=== PATIENT | female | born 1995 | race Caucasian/White ===

== ENCOUNTER 2019-08-04 18:30 | Emergency (ER) | payer BC, SELFPAY ==
[2019-08-04 18:36] VITALS: BP 135/81; PULSE 79; RESP 16; TEMP 37.1; O2SAT 99
--- NOTE | 2019-08-04 19:02 | ED.GENADULT ---
HPI - General Adult General Chief complaint: Skin/Abscess/Foreign Body Stated complaint: Rash Time Seen by Provider: 08/04/19 19:02 Source: patient and RN notes reviewed Mode of arrival: ambulatory Limitations: no limitations History of Present Illness HPI narrative: 23-year-old female presents with complaints of lesions throughout body with redness, tenderness, and swelling for the past 2 months. Tender to touch. Bactroban and facial washes with little relief. New areas appears almost daily. Kiley admits to picking at skin espicially to face area often. Currently awaiting a Aerographer referral and appointment per Kiley. Treated for MRSA and lesions 2 months ago with some. No drainage. History of skin problems. No fever or chills. No abdominal pain, nausea, and vomiting. Remains active. Kiley denies being , LMP 07/28/19. Some parts of this dictation were generated by voice recognition software and may contain typographical and/or grammatical inaccuracies. Related Data Home Medications Medication Instructions Recorded Confirmed aripiprazole 2 mg DAILY 08/04/19 08/04/19 dextroamphetamine-amphetamine 30 mg DAILY 08/04/19 08/04/19 Allergies Allergy/AdvReac Type Severity Reaction Status Date / Time No Known Allergies Allergy Verified 08/04/19 18:43 Review of Systems Review of Systems: Narrative: CONSTITUTIONAL: Denies fever, chills, sweats. EYES: Denies visual changes, redness, discharge. ENT: Denies rhinorrhea, congestion, sore throat, otalgia. CARDIOVASCULAR: Denies chest pain, palpitations, edema. RESPIRATORY: Denies dyspnea, wheezing, cough. GASTROINTESTINAL: Denies abdominal pain, nausea, vomiting, diarrhea. GENITOURINARY: Denies dysuria, hematuria, abnormal discharge. SKIN: Denies rash or itching. Complains of lesions throughout body with redness, tenderness, and swelling. No drainage. MUSCULOSKELETAL: Denies acute back pain, joint pain, or myalgia. NEUROLOGIC: Denies numbness or focal weakness. PSYCHIATRIC: Denies anxiety or depression. All systems reviewed & are unremarkable except as noted in HPI and below. PENDING SALE TO [facility] Past Medical History Medical History (Updated 08/05/19 @ 00:00 by Benito Escobar) ADHD (attention deficit hyperactivity disorder) Anxiety Depression Surgical History Surgical History (Updated 03/13/20 @ 19:14 by MATHEW Zhu) No significant past surgical history Family History Family History (Updated 08/04/19 @ 19:15 by MATHEW Zhu) Other No significant family history Social History Social History (Updated 08/04/19 @ 19:16 by MATHEW Zhu) Smoking status: Former smoker Second hand tobacco smoke exposure: No Alcohol intake: never Substance use: never Living arrangements: with family Occupation/Education: occupation Gender identity (if verbalized by the patient): Female Comments At time of signature, I have reviewed and agree with nursing past medical, surgical, social, and family history. Please see nursing chart for further information. There is no relevant family history pertinent to the presenting complaint. Exam Narrative: Exam Narrative: GENERAL: This is a well-nourished, well-developed patient, in no apparent distress. Talking in full sentences without deficit and ambulate with steady gait without dyspnea. HEAD: normocephalic, atraumatic. EYES: PERRL. Sclera clear/white. Vision is grossly intact. NECK: Neck supple, non-tender without lymphadenopathy, masses or thyromegaly. CARDIOVASCULAR: Regular rate and rhythm without murmurs, gallops, or rubs. RESPIRATORY: Clear to auscultation. Breath sounds equal bilaterally. No wheezes, rales, or rhonchi. GASTROINTESTINAL: Abdomen soft, non-tender, nondistended. Bowel sounds are active. No hepato-splenomegaly, or palpable masses. No guarding. SKIN: warm, Numerous, varies sizes of inflamed papules and pustules area with mild-moderate swelling, erythema, and warmth
== END 2019-08-04 19:30 | disposition home or self-care (01) ==
PROVIDERS: Emergency Provider Nurse Practitioner Family; PCP Family Medicine
DX: L70.0 Acne vulgaris (principal); F90.9 Attention-deficit hyperactivity disorder, unspecified type; F41.9 Anxiety disorder, unspecified; F32.9 Major depressive disorder, single episode, unspecified; Z87.891 Personal history of nicotine dependence
CPT/HCPCS: 99203; G0463

== ENCOUNTER 2020-06-06 09:46 | Outpatient (CLI) | payer BC, SELFPAY ==
[2020-06-06 10:42] LABS: Beta HCG Quantitative 101.36 mIU/ML
== END 2020-06-06 09:47 | disposition home or self-care (01) ==
LOC: ANHLAB 09:50
PROVIDERS: PCP Family Medicine; Visit Provider Obstetrics & Gynecology
DX: Z87.59 Personal history of other complications of pregnancy, childbirth and the puerperium (principal)
CPT/HCPCS: 36415; 84702

== ENCOUNTER 2020-06-08 08:14 | Outpatient (CLI) | payer BC, SELFPAY ==
[2020-06-08 10:17] LABS: Beta HCG Quantitative 206.29 mIU/ML
== END 2020-06-08 08:15 | disposition home or self-care (01) ==
LOC: ANHLAB 08:16
PROVIDERS: PCP Family Medicine; Visit Provider Obstetrics & Gynecology
DX: N92.5 Other specified irregular menstruation (principal)
CPT/HCPCS: 36415; 84702

== ENCOUNTER 2020-06-24 10:04 | Outpatient (CLI) | payer BC, SELFPAY ==
[2020-06-24 11:07] LABS: Hematocrit 37.3 % (37.0-47.0); Mean Corpuscular HGB Conc 34.9 g/dl (32-36); Mean Corpuscular Hemoglobin 30.2 pg (26-34); Mean Corpuscular Volume 86.7 fl (80-100); Mean Platelet Volume 9.6 fl (7.4-10.4); Platelet Count Result 289 k/mm3 (150-375); Red Cell Distribution Width 12.5 % (11.5-14.5); White Blood Count 5.5 K/mm3 (4.5-10.0)
[2020-06-24 12:02] LABS: HIV 1/2 Ab P24 Ag Result Negative (Negative)
[2020-06-24 13:28] LABS: Hepatitis B Surface Antigen Negative (Negative); Rubella IgG Antibody 14.1 IU/ML
[2020-06-25 11:03] LABS: Rapid Plasma Reagin Non-Reactive (NonReactive)
[2020-07-02 16:57] LABS: CF Result NEGATIVE (NEGATIVE)
== END 2020-06-24 10:05 | disposition home or self-care (01) ==
LOC: ANHLAB 10:05
PROVIDERS: PCP Family Medicine; Visit Provider Obstetrics & Gynecology
DX: N92.5 Other specified irregular menstruation (principal)
CPT/HCPCS: 36415; 81220; 81329; 85027; 86592; 86644; 86703; 86762; 86787; 87340; G0432

== ENCOUNTER 2020-06-28 18:02 | Emergency (ER) | payer BC, SELFPAY ==
[2020-06-28 18:07] VITALS: BP 130/79; PULSE 100; RESP 16; TEMP 36.2; O2SAT 100
[2020-06-28 18:28] LABS: Basophils Percent Auto 0.1 % (0.2-1.2); Eosinophils Absolute Auto 0.1 K/mm3 (0-0.3); Eosinophils Percent Auto 0.9 % (0-4.4); Hematocrit 37.2 % (37.0-47.0); Hemoglobin 12.7 g/dL (12.0-15.0); Immature Granulocyte Absolute 0.02 K/mm3 (0.00-0.031); Immature Granulocyte Percent A 0.3 % (0-0.5); Lymphocytes Absolute Auto 2.39 K/mm3 (0.9-3.2); Lymphocytes Percent Auto 31.7 % (18.3-44.2); Mean Corpuscular HGB Conc 34.1 g/dl (32-36); Mean Corpuscular Volume 87.7 fl (80-100); Mean Platelet Volume 9.9 fl (7.4-10.4); Monocytes Absolute Auto 0.6 K/mm3 (0.1-0.6); Monocytes Percent Auto 7.9 % (2.6-8.5); Neutrophils Absolute Auto 4.5 K/mm3 (1.3-6.7); Neutrophils Percent Auto 59.1 % (45.5-73.1); Platelet Count Result 317 k/mm3 (150-375); Red Blood Count 4.24 M/mm3 (4.2-5.4); Red Cell Distribution Width 12.3 % (11.5-14.5); White Blood Count 7.6 K/mm3 (4.5-10.0)
--- NOTE | 2020-06-28 20:09 | ED.FEMALEGU ---
HPI - Female Genitourinary General Chief complaint: Vaginal Bleeding Stated complaint: vag bleed in Time Seen by Provider: 06/28/20 19:04 History of Present Illness HPI Narrative: Patient is a 24-year-old female who presents ER with vaginal bleeding and . Patient had a dating ultrasound on 06/24/2020 that showed a 5-week 6-day gestation . She reports she been doing well until this afternoon at 4 PM when she began to have dark vaginal spotting. She is also reporting some pelvic cramping. No urinary symptoms. Blood is dark in nature. Patient is a G2, P0. Patient sees Dr. Melendrez. Related Data Home Medications Medication Instructions Recorded Confirmed No Home Medications 06/28/20 06/28/20 Allergies Allergy/AdvReac Type Severity Reaction Status Date / Time No Known Allergies Allergy Verified 06/28/20 19:07 Review of Systems Review of Systems: All systems reviewed & are unremarkable except as noted in HPI and below Constitutional: Constitutional: Denies chills and Denies fatigue ENT: Denies nasal congestion and Denies sore throat Cardiovascular: Cardiovascular: Denies chest pain, Denies rapid heart rate and Denies radiating jaw, neck or arm pain Genitourinary: Genitourinary: Reports abnormal vaginal bleeding, Denies dysuria, Denies pelvic pain and Denies vaginal discharge PMFSH Past Medical History Medical History (Updated 06/28/20 @ 20:23 by Sundeep Ruiz MD) ADHD (attention deficit hyperactivity disorder) Anxiety Depression Surgical History Surgical History (Updated 08/04/19 @ 19:14 by MATHEW Zhu) No significant past surgical history Family History Family History (Updated 08/04/19 @ 19:15 by MATHEW Zhu) Other No significant family history Social History Social History (Updated 08/04/19 @ 19:16 by MATHEW Zhu) Smoking status: Former smoker Second hand tobacco smoke exposure: No Alcohol intake: never Substance use: never Gender identity (if verbalized by the patient): Female Exam Narrative: Exam Narrative: GENERAL: Well-appearing, well-nourished, and in no acute distress. HEAD: Normocephalic, atraumatic. CHEST: Clear to auscultation. No respiratory distress. HEART: Regular rate and rhythm. Normal peripheral pulses. ABDOMEN: Soft, nontender, nondistended. : Normal external genitalia. Small amount of dark blood within the vaginal vault approximately the size of a nickel. Mild brown mucus coming from the cervical os. Cervix otherwise is normal in appearance. No additional discharge. No tenderness. EXTREMITIES: Normal range of motion. No edema. NEURO: Alert and oriented x3. PSYCH: Normal mood and affect. Course Course Emergency Course: Bedside ultrasound performed by myself. IUP present with what appears to be a heartbeat. Discussed case with Dr. Hurd with OB. Recommends patient keep previously scheduled OB appointment. Give bleeding precautions and if patient has any additional issues or concerns she can contact the office. Patient verbalized understanding this. Discharge home. Vital Signs Vital signs: Vital Signs Temperature 97.1 F L 06/28/20 18:07 Pulse Rate 100 06/28/20 18:07 Respiratory Rate 16 06/28/20 18:07 Blood Pressure 130/79 06/28/20 18:07 Pulse Oximetry 100 06/28/20 18:07 Temperature 97.1 F L 06/28/20 18:07 Pulse Rate 100 06/28/20 18:07 Respiratory Rate 16 06/28/20 18:07 Blood Pressure 130/79 06/28/20 18:07 Pulse Oximetry 100 06/28/20 18:07 MDM - Female Genitourinary Lab Data Result diagrams: 06/28/20 18:16 Labs: Lab Results 06/28/20 06/28/20 06/28/20 Range/Units 18:16 18:16 18:16 WBC 7.6 (4.5-10.0) K/mm3 RBC 4.24 (4.2-5.4) M/mm3 Hgb 12.7 (12.0-15.0) g/dL Hct 37.2 (37.0-47.0) % MCV 87.7 (80-100) fl MCH 30.0 (26-34) pg MCHC 34.1 (32-36) g/dl RDW 12.3 (11.5-14.5) % Plt Count 31
[2020-06-28 20:42] VITALS: BP 134/94; PULSE 89; RESP 16; TEMP 36.3; O2SAT 100
== END 2020-06-28 20:43 | disposition home or self-care (01) ==
PROVIDERS: Emergency Medicine; Emergency Provider Emergency Medicine; PCP Family Medicine
DX: O20.0 Threatened abortion (principal); Z3A.01 Less than 8 weeks gestation of pregnancy; Z87.891 Personal history of nicotine dependence
CPT/HCPCS: 36415; 81025; 84702; 85025; 85461; 99284

== ENCOUNTER 2020-08-13 11:19 | Outpatient (CLI) | payer BC, SELFPAY ==
[2020-08-13 12:03] LABS: Basophils Percent Auto 0.2 % (0.2-1.2); Eosinophils Absolute Auto 0.1 K/mm3 (0-0.3); Hematocrit 39.7 % (37.0-47.0); Hemoglobin 13.3 g/dL (12.0-15.0); Immature Granulocyte Absolute 0.02 K/mm3 (0.00-0.031); Immature Granulocyte Percent A 0.3 % (0-0.5); Lymphocytes Absolute Auto 2.47 K/mm3 (0.9-3.2); Mean Corpuscular HGB Conc 33.5 g/dl (32-36); Mean Corpuscular Hemoglobin 29.8 pg (26-34); Monocytes Absolute Auto 0.4 K/mm3 (0.1-0.6); Neutrophils Absolute Auto 2.9 K/mm3 (1.3-6.7); Neutrophils Percent Auto 49.5 % (45.5-73.1); Platelet Count Result 317 k/mm3 (150-375); Red Blood Count 4.46 M/mm3 (4.2-5.4); Red Cell Distribution Width 12.3 % (11.5-14.5); White Blood Count 5.9 K/mm3 (4.5-10.0)
[2020-08-13 12:30] LABS: Beta HCG Quantitative < 2.39 mIU/ML
[2020-08-13 12:50] LABS: Free T4 Free Thyroxine 1.08 ng/mL (0.78-2.19)
[2020-08-15 21:30] LABS: Anti Cardio Antibody IgM 14 MPL (<=12); Anti Cardiolipin Antibody IgA <11 APL (<=11); Anti Cardiolipin Antibody IgG <14 GPL (<=14)
[2020-08-16 05:09] LABS: Thyroid Peroxidase Antibodies <1 IU/mL (<9)
[2020-08-16 06:47] LABS: Triiodothyronine T3 Free 3.2 pg/mL (2.3-4.2)
[2020-08-16 11:12] LABS: Lupus dRVVT 1:1 Mix Interpreta Not Indicated; Lupus dRVVT Screen 26 sec (<=45); PTT-LA Screen 35 sec (<=40)
== END 2020-08-13 11:20 | disposition home or self-care (01) ==
PROVIDERS: PCP Family Medicine; Visit Provider Obstetrics & Gynecology
DX: N96 Recurrent pregnancy loss (principal); Z87.59 Personal history of other complications of pregnancy, childbirth and the puerperium
CPT/HCPCS: 36415; 84439; 84443; 84481; 84702; 85025; 85613; 85730; 86147; 86376

== ENCOUNTER 2020-09-02 08:49 | Outpatient (RCR) | payer BC, SELFPAY ==
[2020-08-30 11:00] LABS: Add Urine Microscopic? YES; Appearance Urine Clear (Clear); Bacteria Urine Trace /hpf; Bilirubin Urine Negative (Negative); Blood Urine Negative (Negative); Color Urine Yellow (Yellow); Glucose Urine UA Negative (Negative); Ketones Urine Negative (Negative); Leukocyte Esterase Ur Negative LEU/UL (NEGATIVE); Nitrate Urine Positive (Negative); Protein Urine Negative (Negative); RBC Urine 0-2 /hpf (0-2); Specific Grav Ur 1.005 (1.001-1.035); Squamous Epithelial Cell Urine Rare /hpf (Few); Urobilinogen Urine Negative mg/dL (<2.0); WBC Urine 0-3 /hpf (0-3)
[2020-08-30 11:16] LABS: INR 0.8; Prothrombin Time 11.8 Seconds (11.1-14.7)
[2020-08-30 11:17] LABS: Partial Thromboplastin Time 29.1 SECONDS (22.3-36.8)
[2020-09-01 17:49] LABS: Antithrombin III Activity 110 % normal (80-135)
[2020-09-02 14:00] LABS: Progesterone 19.1 ng/mL (***)
== END 2020-11-28 23:59 | disposition home or self-care (01) ==
LOC: ANHLAB 08:49
PROVIDERS: PCP Family Medicine; Visit Provider Obstetrics & Gynecology
DX: N92.5 Other specified irregular menstruation (principal); N96 Recurrent pregnancy loss; R30.9 Painful micturition, unspecified
CPT/HCPCS: 36415; 81001; 81240; 81241; 84144; 84702; 85300; 85303; 85306; 85610; 85730

== ENCOUNTER 2020-09-17 09:48 | Outpatient (CLI) | payer BC, SELFPAY ==
[2020-09-17 10:23] LABS: Hematocrit 36.6 % (37.0-47.0); Hemoglobin 12.3 g/dL (12.0-15.0); Mean Corpuscular HGB Conc 33.6 g/dl (32-36); Mean Corpuscular Hemoglobin 29.8 pg (26-34); Mean Corpuscular Volume 88.6 fl (80-100); Mean Platelet Volume 10.2 fl (7.4-10.4); Platelet Count Result 300 k/mm3 (150-375); Red Blood Count 4.13 M/mm3 (4.2-5.4); Red Cell Distribution Width 12.3 % (11.5-14.5); White Blood Count 8.4 K/mm3 (4.5-10.0)
[2020-09-17 11:11] LABS: HIV 1/2 Ab P24 Ag Result Negative (Negative)
[2020-09-17 11:31] LABS: Hepatitis B Surface Antigen Negative (Negative); Rubella IgG Antibody 12.1 IU/ML
[2020-09-18 10:50] LABS: Rapid Plasma Reagin Non-Reactive (NonReactive)
== END 2020-09-17 09:49 | disposition home or self-care (01) ==
LOC: ANHLAB 09:49
PROVIDERS: PCP Family Medicine; Visit Provider Obstetrics & Gynecology
DX: Z34.90 Encounter for supervision of normal pregnancy, unspecified, unspecified trimester (principal); Z3A.00 Weeks of gestation of pregnancy not specified
CPT/HCPCS: 36415; 84702; 85027; 86592; 86644; 86703; 86747; 86762; 86787; 86850; 86900; 86901; 87086; 87088; 87340; G0432

== ENCOUNTER 2020-10-10 16:13 | Outpatient (CLI) | payer BC, SELFPAY | END 2020-10-10 16:14 | disposition home or self-care (01) | LOC: ANHLAB 16:16 | PROVIDERS: PCP Family Medicine; Visit Provider Obstetrics & Gynecology | DX: N96 Recurrent pregnancy loss (principal) | CPT/HCPCS: 36415; 84702 ==

== ENCOUNTER 2020-10-29 12:39 | Outpatient (CLI) | payer BC, SELFPAY ==
--- NOTE | ~2020-10-29 | US_ITS ---
EXAMINATION: US pelvic complete w TV EXAM DATE: 10/29/2020 13:54 INDICATION: Postoperative visit. D and C 10/17/2020. TECHNIQUE: Pelvic transabdominal and transvaginal sonogram was performed. There are multiple graysca le and Doppler images available for interpretation. There is no prior study for comparison. FINDINGS: Uterus measures 7.0 x 5.2 x 4.6 cm, with endometrial stripe measuring 12 mm, within normal thickness. There is mildly hypervascular, solid material which is within the central aspect of the f undal endometrium, region measuring about 5 x 10 mm. Appearance is suspicious for retained products o f conception. No free pelvic fluid. Right adnexa: The ovary measures 1.9 x 1.7 x 2.2 cm and is morphologically normal. Ovarian vascular f low confirmed. Left adnexa: The ovary measures 2.2 x 2.0 x 1.1 cm and is morphologically normal. Ovarian vascular fl ow confirmed. IMPRESSION: 1. Small solid hypervascular endometrial region suspicious for retained products of conception. Reviewed, dictated and finalized at location A. IMPRESSION: 1. Small solid hypervascular endometrial region suspicious for retained produc ts of conception.
[2020-10-29 13:08] LABS: Basophils Percent Auto 0.3 % (0.2-1.2); Eosinophils Percent Auto 0.6 % (0-4.4); Hematocrit 36.3 % (37.0-47.0); Hemoglobin 12.1 g/dL (12.0-15.0); Immature Granulocyte Absolute 0.01 K/mm3 (0.00-0.031); Immature Granulocyte Percent A 0.2 % (0-0.5); Lymphocytes Absolute Auto 1.84 K/mm3 (0.9-3.2); Lymphocytes Percent Auto 29.4 % (18.3-44.2); Mean Corpuscular HGB Conc 33.3 g/dl (32-36); Mean Corpuscular Hemoglobin 29.4 pg (26-34); Mean Corpuscular Volume 88.1 fl (80-100); Mean Platelet Volume 9.2 fl (7.4-10.4); Monocytes Absolute Auto 0.4 K/mm3 (0.1-0.6); Neutrophils Absolute Auto 3.9 K/mm3 (1.3-6.7); Neutrophils Percent Auto 62.5 % (45.5-73.1); Platelet Count Result 320 k/mm3 (150-375); Red Blood Count 4.12 M/mm3 (4.2-5.4); Red Cell Distribution Width 12.3 % (11.5-14.5); White Blood Count 6.3 K/mm3 (4.5-10.0)
[2020-10-29 13:14] LABS: Add Urine Microscopic? YES; Appearance Urine Clear (Clear); Bilirubin Urine Negative (Negative); Blood Urine 1+ (Negative); Color Urine Straw (Yellow); Glucose Urine UA Negative (Negative); Ketones Urine Negative (Negative); Leukocyte Esterase Ur Negative LEU/UL (Negative); Nitrate Urine Negative (Negative); Protein Urine Negative (Negative); RBC Urine 0-2 /hpf (0-2); Squamous Epithelial Cell Urine Occasional /hpf (Few); Urobilinogen Urine Negative mg/dL (<2.0); WBC Urine 0-3 /hpf
[2020-10-29 13:34] LABS: Beta HCG Quantitative 356.01 mIU/ML
[2020-10-29 13:35] LABS: Alanine Aminotransferase 10 U/L (4-35); Albumin Level 4.7 g/dL (3.5-5.1); Alkaline Phosphatase 67 U/L (38-126); Anion Gap 10 mmol/L (8-16); Aspartate Amino Transferase 28 U/L (14-36); Bilirubin,Total 0.5 mg/dL (0.2-1.3); Blood Urea Nitrogen 6 mg/dL (7-17); Calcium 10.1 mg/dL (8.4-10.2); Carbon Dioxide 27 mmol/L (22-30); Chloride 102 mmol/L (98-107); Estimated Glomerular Filt Rate > 60; Glucose 94 mg/dL (65-105); Potassium 4.1 mmol/L (3.4-5.0); Sodium 139 mmol/L (137-145)
[2020-10-29 14:23] LABS: Specific Grav Ur 1.003 (1.001-1.035)
== END 2020-10-29 12:40 | disposition home or self-care (01) ==
LOC: ANHIMG 12:41
PROVIDERS: PCP Family Medicine; Visit Provider Obstetrics & Gynecology
DX: Z09 Encounter for follow-up examination after completed treatment for conditions other than malignant neoplasm (principal)
CPT/HCPCS: 36415; 76830; 76856; 80053; 81001; 84702; 85025

== ENCOUNTER 2021-10-09 09:41 | Emergency (ER) | payer BC, SELFPAY ==
[2021-10-09 09:51] VITALS: BP 115/75; PULSE 105; RESP 18; TEMP 36.6; O2SAT 100
--- NOTE | 2021-10-09 10:21 | ED.URI ---
HPI - URI/Sore Throat General Chief Complaint: Upper Respiratory Infection Stated Complaint: Sore Throat,Ear Pain Time Seen by Provider: 10/09/21 10:21 Source: patient Mode of arrival: ambulatory Limitations: no limitations History of Present Illness HPI Narrative: 25-year-old female presents with complaint of sore throat, right-sided lymph node pain, right ear pain for 2 days. Reports fatigue, body aches. No fever or chills. Denies nausea vomiting diarrhea. All systems reviewed and negative except as noted above. Related Data Home Medications Medication Instructions Recorded Confirmed dextroamphetamine-amphetamine ER 20 mg PO DAILY 08/14/21 10/09/21 20 mg 24hr capsule,extend release fluoxetine 40 mg capsule 40 mg PO DAILY 08/14/21 10/09/21 trazodone 50 mg tablet 50 mg PO QHS PRN 08/14/21 10/09/21 Allergies Allergy/AdvReac Type Severity Reaction Status Date / Time No Known Allergies Allergy Verified 10/09/21 10:09 Review of Systems Review of Systems: CONSTITUTIONAL: Denies fever, chills, or sweats. EYES: Denies visual changes, redness, or discharge. ENT: Denies rhinorrhea, congestion. Reports sore throat and right ear pain. CARDIOVASCULAR: Denies chest pain, palpitations, or edema. RESPIRATORY: Denies cough or dyspnea. GASTROINTESTINAL: Denies abdominal pain, nausea, vomiting, or diarrhea. GENITOURINARY: Denies dysuria or hematuria. SKIN: Denies rash or itching. MUSCULOSKELETAL: Denies back pain, joint pain, or myalgia. NEUROLOGIC: Denies headache, numbness, or weakness. PSYCHIATRIC: Denies anxiety or depression. All other systems reviewed are negative, except as documented in HPI. 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 There is no relevant family history pertinent to the presenting complaint. Exam Narrative: GENERAL: This is a well-nourished, well-developed patient, in no apparent distress. HEAD: normocephalic, atraumatic. EYES: PERRL. Sclera clear/white. Vision is grossly intact. EARS: External ears normal, auditory canals clear and without drainage, TMs normal without perforation. Hearing grossly intact. NOSE: External nose normal with no obvious nasal discharge, nares without redness, no rhinorrhea. THROAT: Mucous membranes moist, swelling and erythema to posterior pharynx. No tonsillar swelling or exudates. NECK: Neck supple, non-tender without lymphadenopathy, masses or thyromegaly. CARDIOVASCULAR: Regular rate and rhythm without murmurs, gallops, or rubs. RESPIRATORY: Clear to auscultation. Breath sounds equal bilaterally. No wheezes, rales, or rhonchi. SKIN: warm, Dry, intact with no suspicious lesions or rash, good texture and turgor. NEURO: awake, alert, and oriented to person, place and time. There were no obvious focal neurologic abnormalities. EXTREMITIES: Normal range of motion to all extremities. Course Course Level of Care: Express Care Visit Vital Signs Vital signs: Vital Signs Temperature 36.6 C 10/09/21 09:51 Pulse Rate 105 H 10/09
== END 2021-10-09 10:52 | disposition home or self-care (01) ==
PROVIDERS: Emergency Provider Nurse Practitioner Family; PCP Family Medicine
DX: J02.0 Streptococcal pharyngitis (principal); Z20.822 Contact with and (suspected) exposure to COVID-19; F90.9 Attention-deficit hyperactivity disorder, unspecified type; F32.A Depression, unspecified; F41.9 Anxiety disorder, unspecified
CPT/HCPCS: 87426; 87880; 99213; C9803; G0463

== ENCOUNTER 2021-10-28 10:08 | Emergency (ER) | payer BC, SELFPAY ==
--- NOTE | 2021-10-28 10:19 | ED.URI ---
HPI - URI/Sore Throat General Chief Complaint: Upper Respiratory Infection Stated Complaint: sorethroat Time Seen by Provider: 10/28/21 10:19 Source: patient, RN notes reviewed and old records reviewed Mode of arrival: ambulatory Limitations: no limitations History of Present Illness HPI Narrative: 25-year-old female who presents to [facility] care with complaints of sore throat for the past 3 days. Patient reports she does have a past history of strep throat and was treated previously on 10/09/2021 with amoxicillin for 10 days which she states she completed. Patient reports that she is not sure if she has had a fever but she has had sweats in the morning. She reports that she has a headache and also some body aches and discomfort in her neck along her tonsillar lymph nodes. Patient has had COVID vaccinations and also Flu shot, she did have COVID in May of 2021. MD elicited complaint: sore throat Pertinent past history: other (Strep pharyngitis) Onset (ago): day(s) (3) Pain scale (0-10): 7 Exacerbating factors: swallowing and other (yawning) Treatments prior to arrival: ibuprofen Related Data Home Medications Medication Instructions Recorded Confirmed dextroamphetamine-amphetamine ER 20 mg PO DAILY 08/14/21 10/28/21 20 mg 24hr capsule,extend release (Adderall XR) fluoxetine 40 mg capsule (Prozac) 40 mg PO DAILY 08/14/21 10/28/21 trazodone 50 mg tablet 50 mg PO QHS PRN Insomnia 08/14/21 10/28/21 Allergies Allergy/AdvReac Type Severity Reaction Status Date / Time No Known Allergies Allergy Verified 10/28/21 10:31 Review of Systems Review of Systems: CONSTITUTIONAL: Denies known fever, chills, positive for sweats. EYES: Denies visual changes, redness, or discharge. ENT: Positive for rhinorrhea, congestion, positive sore throat,no otalgia. CARDIOVASCULAR: Denies chest pain, palpitations, or edema. RESPIRATORY: Denies cough or dyspnea. GASTROINTESTINAL: Denies abdominal pain, nausea, vomiting, or diarrhea. GENITOURINARY: Denies dysuria or hematuria. SKIN: Denies rash or itching. MUSCULOSKELETAL: Denies back pain, joint pain,positive for body aches NEUROLOGIC: Positive for headache, no numbness, or weakness. PSYCHIATRIC: Positive history of anxiety or depression [facility] Past Medical History Medical History (Updated 10/28/21 @ 10:44 by Karon Darling NP) ADHD (attention deficit hyperactivity disorder) Anxiety Depression Strep pharyngitis UTI (urinary tract infection) Surgical History Surgical History No significant past surgical history Family History Family History (Updated 08/04/19 @ 19:15 by MATHEW Zhu) Other No significant family history Social History Social History (Updated 08/14/21 @ 14:34 by Cathy Barcenas MA) Smoking status: Never smoker Second hand tobacco smoke exposure: No Alcohol intake: never Substance use: never Substance use type: does not use 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 There is no relevant family history pertinent to the presenting complaint Exam Narrative: GENERAL: Ill-appearing, well-nourished, and in no acute distress. HEAD: Normocephalic, atraumatic. EYES: PERRLA and EOMI. ENT: Nares with minimal redness, clear rhinorrhea no epistaxis. Mucous membranes moist.TM's normal with good light reflex, throat red with pus pocket on left tonsil with tonsils red and swollen NECK: Supple.lymphadenopathy CHEST: Clear to auscultation. No respiratory distress.SAO2 100% on room air no tachypnea HEART: Regular rate and rhythm. No murmur heard. Normal peripheral pulses. ABDOMEN: Soft, nontender, nondistended, no
[2021-10-28 10:38] VITALS: BP 127/80; PULSE 104; RESP 18; TEMP 36.9; O2SAT 100
== END 2021-10-28 10:54 | disposition home or self-care (01) ==
PROVIDERS: Emergency Provider Registered Nurse; PCP Family Medicine
DX: J02.0 Streptococcal pharyngitis (principal); F90.9 Attention-deficit hyperactivity disorder, unspecified type; F41.9 Anxiety disorder, unspecified; F32.A Depression, unspecified
CPT/HCPCS: 87880; 99213; G0463

== ENCOUNTER 2022-03-27 14:36 | Emergency (ER) | payer BC, SELFPAY ==
--- NOTE | 2022-03-27 14:40 | ED.URI ---
HPI - URI/Sore Throat General Stated Complaint: Sore Throat,Headache,Body Aches Time Seen by Provider: 03/27/22 14:45 Source: patient Mode of arrival: ambulatory Limitations: no limitations History of Present Illness HPI Narrative: Kiley is a 26-year-old female patient presenting to clinic today with complaints of fever, sore throat, headache, and body aches x 2-3 days. She reports a fever of 100.8? F. Has had exposure to strep MD elicited complaint: sore throat and nasal congestion Related Data Home Medications Medication Instructions Recorded Confirmed dextroamphetamine-amphetamine ER 20 mg PO DAILY 08/14/21 10/28/21 20 mg 24hr capsule,extend release (Adderall XR) fluoxetine 40 mg capsule (Prozac) 40 mg PO DAILY 08/14/21 10/28/21 trazodone 50 mg tablet 50 mg PO QHS PRN Insomnia 08/14/21 10/28/21 Allergies Allergy/AdvReac Type Severity Reaction Status Date / Time No Known Allergies Allergy Verified 03/27/22 14:44 Review of Systems Review of Systems: Pertinent positives per HPI. Patient denies any rash, visual changes, dizziness, shortness of breath, chest pain, palpitations, nausea, vomiting, diarrhea, constipation, abdominal pain, or any urinary issues. 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 There is no relevant family history pertinent to the patient complaint. Exam Narrative: General: Well-developed, well nourished, in no apparent distress Head: Normocephalic, atraumatic Eyes: Pupils equally round and reactive to light bilaterally, EOM intact, sclera and conjunctive clear, no discharge, lids normal Ears: TMs intact and clear, ear canals clear, no drainage, grossly hearing normal. Nose: Nares patent, clear nares discharge, mild inflammation, no sinus tenderness. Mouth: Oral pharynx without lesions or masses, good dentition, MMM. Oropharynx red Neck: Supple, trachea midline, no enlargement of anterior or posterior cervical nodes, no thyroid masses or goiter palpable. Cardio: Regular rate and rhythm, s1 and s2 normal, no murmur appreciated. Resp: Clear to auscultation bilaterally, no rhonchi, rales, wheezing or rubs Course Course Emergency Course: Portions of this record may have been created with voice recognition software. Level of Care: Express Care Visit Vital Signs Vital signs: Vital signs reviewed MDM - URI/Sore Throat MDM Narrative Medical decision making narrative: At the time of the patient is resting comfortably on exam table. Influenza and strep testing was completed in the clinic today. Both testing were negative. I suspect patient has an upper respiratory infection/pharyngitis. Supportive measures were discussed with the patient she voiced understanding discharge instructions agrees to treatment plan. Differential Diagnosis Differential diagnosis: Likely upper respiratory infection, otitis media, sinusitis, viral infection, b
[2022-03-27 14:47] VITALS: BP 132/86; PULSE 110; RESP 20; TEMP 36.9
== END 2022-03-27 15:03 | disposition home or self-care (01) ==
PROVIDERS: Emergency Provider Nurse Practitioner Family; PCP Family Medicine
DX: J06.9 Acute upper respiratory infection, unspecified (principal); J02.9 Acute pharyngitis, unspecified; F90.9 Attention-deficit hyperactivity disorder, unspecified type; F41.9 Anxiety disorder, unspecified; F32.A Depression, unspecified
CPT/HCPCS: 87081; 87804; 87880; 99213; G0463

== ENCOUNTER 2022-08-07 16:56 | Emergency (ER) | payer BC, SELFPAY ==
--- NOTE | 2022-08-07 17:02 | ED.URI ---
HPI - URI/Sore Throat General Chief Complaint: Upper Respiratory Infection Stated Complaint: COUGH/SORE THROAT/CONGESITON Time Seen by Provider: 08/07/22 17:02 Source: patient Mode of arrival: ambulatory Limitations: no limitations History of Present Illness HPI Narrative: Kiley is a 26-year-old female patient presenting to clinic today with complaints of cough, sore throat, and nasal and chest congestion x 3 weeks. She has had some cold and hot sweats. Bringing up green phlegm when coughing. States she is having a lot of sinus drainage and discomfort. Throat is somewhat sore due to the cough. She denies any shortness of breath or chest pain MD elicited complaint: sore throat and nasal congestion Related Data Home Medications Medication Instructions Recorded Confirmed dextroamphetamine-amphetamine ER 20 mg PO DAILY 08/14/21 08/07/22 20 mg 24hr capsule,extend release (Adderall XR) trazodone 50 mg tablet 50 mg PO QHS PRN Insomnia 08/14/21 08/07/22 bupropion HCl 150 mg 24 hr tablet, 150 mg PO DAILY 08/07/22 08/07/22 extended release Allergies Allergy/AdvReac Type Severity Reaction Status Date / Time No Known Allergies Allergy Verified 08/07/22 17:03 Review of Systems Review of Systems: Pertinent positives per HPI. Patient denies any rash, headache, visual changes, dizziness, shortness of breath, chest pain, palpitations, nausea, vomiting, diarrhea, constipation, abdominal pain, or any urinary issues. 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 There is no relevant family history pertinent to the patient complaint. Exam Narrative: General: Well-developed, well nourished, in no apparent distress Head: Normocephalic, atraumatic Eyes: Pupils equally round and reactive to light bilaterally, EOM intact, sclera and conjunctive clear, no discharge, lids normal Ears: TMs intact and dull, ear canals clear, no drainage, grossly hearing normal. Nose: Nares patent, green nasal discharge, moderate inflammation, maxillary and frontal sinus tenderness. Mouth: Oral pharynx without lesions or masses, good dentition, MMM. Postnasal drip Neck: Supple, trachea midline, no enlargement of anterior or posterior cervical nodes, no thyroid masses or goiter palpable. Cardio: Regular rate and rhythm, s1 and s2 normal, no murmur appreciated. Resp: Diminished breath sounds in the lower bases otherwise clear, no rhonchi, rales, wheezing or rubs Course Course Emergency Course: Portions of this record may have been created with voice recognition software. Level of Care: Express Care Visit Vital Signs Vital signs: Vital Signs Temperature 36.9 C 08/07/22 17:12 Pulse Rate 96 08/07/22 17:12 Respiratory Rate 16 08/07/22 17:12 Blood Pressure 136/80 08/07/22 17:12 Pulse Oximetry 99 08/07/22 17:12
[2022-08-07 17:12] VITALS: BP 136/80; PULSE 96; RESP 16; TEMP 36.9; O2SAT 99
== END 2022-08-07 17:18 | disposition home or self-care (01) ==
PROVIDERS: Emergency Provider Nurse Practitioner Family; PCP Family Medicine
DX: J01.90 Acute sinusitis, unspecified (principal); B96.89 Other specified bacterial agents as the cause of diseases classified elsewhere; J40 Bronchitis, not specified as acute or chronic
CPT/HCPCS: 99213; G0463

== ENCOUNTER 2022-10-05 16:09 | Outpatient (CLI) | payer BC, SELFPAY ==
[2022-10-05 16:32] LABS: Basophils Percent Auto 0.3 % (0.2-1.2); Eosinophils Absolute Auto 0.1 K/mm3 (0-0.3); Hematocrit 37.3 % (37.0-47.0); Hemoglobin 12.3 g/dL (12.0-15.0); Immature Granulocyte Absolute 0.02 K/mm3 (0.00-0.031); Immature Granulocyte Percent A 0.3 % (0-0.5); Lymphocytes Absolute Auto 2.32 K/mm3 (0.9-3.2); Lymphocytes Percent Auto 29.6 % (18.3-44.2); Mean Corpuscular Hemoglobin 29.7 pg (26-34); Mean Corpuscular Volume 90.1 fl (80-100); Mean Platelet Volume 9.4 fl (7.4-10.4); Monocytes Absolute Auto 0.5 K/mm3 (0.1-0.6); Monocytes Percent Auto 6.5 % (2.6-8.5); Neutrophils Absolute Auto 4.9 K/mm3 (1.3-6.7); Neutrophils Percent Auto 62.3 % (45.5-73.1); Platelet Count Result 301 k/mm3 (150-375); Red Blood Count 4.14 M/mm3 (4.2-5.4); Red Cell Distribution Width 12.2 % (11.5-14.5); White Blood Count 7.8 K/mm3 (4.5-10.0)
[2022-10-05 16:37] LABS: Appearance Urine Cloudy (Clear); Bacteria Urine None Seen /hpf; Bilirubin Urine Negative (Negative); Blood Urine Negative (Negative); Color Urine Yellow (Yellow); Glucose Urine UA Negative (Negative); Ketones Urine Negative (Negative); Leukocyte Esterase Ur Negative LEU/UL (Negative); Nitrate Urine Negative (Negative); Non Pathogenic Casts 0-2; Protein Urine Negative (Negative); RBC Urine 0-2 /hpf (0-2); Specific Grav Ur 1.018 (1.001-1.035); Squamous Epithelial Cell Urine Few /hpf (Few); Urobilinogen Urine 0.2 mg/dL (<2.0); WBC Urine 0-5 /hpf
[2022-10-05 16:51] LABS: Add Urine Microscopic? YES
[2022-10-05 22:43] LABS: LDL Cholesterol Direct 68 mg/dL
[2022-10-05 22:47] LABS: Alanine Aminotransferase 17 U/L (6-35); Albumin Level 4.1 g/dL (3.5-5.1); Alkaline Phosphatase 59 U/L (38-126); Anion Gap 4 mmol/L (8-16); Aspartate Amino Transferase 25 U/L (14-36); Bilirubin,Total 0.2 mg/dL (0.2-1.3); Blood Urea Nitrogen 8 mg/dL (7-17); Calcium 8.6 mg/dL (8.4-10.2); Carbon Dioxide 30 mmol/L (22-30); Chloride 104 mmol/L (98-107); Cholesterol 187 mg/dL (0-200); Estimated Glomerular Filt Rate > 60; Glucose 85 mg/dL (65-110); HDL Direct 110 mg/dL; Potassium 4.2 mmol/L (3.4-5.0); Sodium 138 mmol/L (137-145); Triglycerides 106 mg/dL (<150)
== END 2022-10-05 16:10 | disposition home or self-care (01) ==
LOC: ANHLAB 16:10
PROVIDERS: PCP Nurse Practitioner Family; Visit Provider Nurse Practitioner Family
DX: R30.0 Dysuria (principal); Z13.0 Encounter for screening for diseases of the blood and blood-forming organs and certain disorders involving the immune mechanism; Z00.00 Encounter for general adult medical examination without abnormal findings; Z13.6 Encounter for screening for cardiovascular disorders; Z13.29 Encounter for screening for other suspected endocrine disorder
CPT/HCPCS: 36415; 80053; 80061; 81001; 84443; 85025

== ENCOUNTER 2023-03-12 15:03 | Outpatient (CLI) | payer BC, SELFPAY ==
--- NOTE | ~2023-03-12 | US_ITS ---
US thyroid INDICATION: Abnormal laboratory studies TECHNIQUE: Real-time sonographic images of the thyroid gland were obtained. COMPARISON: No prior studies for comparison. FINDINGS: The right thyroid lobe measures 4.4 x 1.7 x 1.6 cm. The left thyroid lobe measures 4 x 1.3 x 1.2 cm. There is normal echotexture and echogenicity throughout the thyroid gland. No discrete nod ules identified. Normal vascular flow is present. IMPRESSION: 1. Normal thyroid without discrete nodule or abnormal vascularity. Reviewed, dictated and finalized at location A.
== END 2023-03-12 15:04 ==
LOC: GOSHIMG 15:05
PROVIDERS: PCP Nurse Practitioner Family; Visit Provider Nurse Practitioner Family
DX: E04.1 Nontoxic single thyroid nodule (principal); R79.89 Other specified abnormal findings of blood chemistry
CPT/HCPCS: 76536

== ENCOUNTER 2023-03-12 15:15 | Outpatient (CLI) | payer BC, SELFPAY ==
[2023-03-12 19:20] LABS: Free T4 Free Thyroxine 1.34 ng/mL (0.78-2.19)
[2023-03-12 19:23] LABS: Thyroid Stimulating Hormone 0.764 uIU/mL (0.465-4.680); Total Triiodothyronine (T3) 1.57 NG/ML (0.97-1.69)
== END 2023-03-12 15:16 | disposition home or self-care (01) ==
LOC: ANHGOSHLAB 15:16
PROVIDERS: PCP Nurse Practitioner Family; Visit Provider Nurse Practitioner Family
DX: E04.1 Nontoxic single thyroid nodule (principal); R79.89 Other specified abnormal findings of blood chemistry
CPT/HCPCS: 36415; 84439; 84443; 84480

== ENCOUNTER 2024-04-26 15:39 | Emergency (ER) | payer BC, SELFPAY ==
[2024-04-26 15:48] VITALS: BP 123/75; PULSE 96; RESP 18; TEMP 36.6; O2SAT 100
--- NOTE | 2024-04-26 15:53 | ED.URI ---
HPI - URI/Sore Throat General Chief Complaint: Upper Respiratory Infection Stated Complaint: sinus pressure/ sore throat/ bilateral ear pain Time Seen by Provider: 04/26/24 15:53 Source: patient, RN notes reviewed and old records reviewed Mode of arrival: ambulatory Limitations: no limitations History of Present Illness HPI Narrative: Patient presents with 3-4 days sore throat, runny nose, cough. She reports that ears began hurting this morning, left worse than right. She has not been taking anything for her symptoms. She denies any fever, chills, sweats. Denies any injury or trauma. Voices no other concerns or complaints at this time. Related Data Home Medications Medication Instructions Recorded Confirmed trazodone 50 mg tablet 50 mg PO QHS PRN Insomnia 08/14/21 04/26/24 dextroamphetamine-amphetamine ER 40 mg PO DAILY 10/05/22 04/26/24 20 mg 24hr capsule,extend release (Adderall XR) Allergies Allergy/AdvReac Type Severity Reaction Status Date / Time No Known Allergies Allergy Verified 04/26/24 15:42 Review of Systems Review of Systems: All systems reviewed & are unremarkable except as noted in HPI and below Constitutional: Constitutional: Reports no additional constitutional complaints ENT: Reports system reviewed and no additional complaints, except as documented, Reports otalgia and Reports nasal discharge Cardiovascular: Cardiovascular: Reports no additional cardiovascular complaints Respiratory: Respiratory: Reports no additional respiratory complaints and Reports cough Gastrointestinal: Gastrointestinal: Reports no additional gastrointestinal complaints [facility] Past Medical History Medical History (Updated 04/26/24 @ 16:00 by Gela Lofton APRN) Abnormal serum thyroxine (T4) level ADHD (attention deficit hyperactivity disorder) Anxiety Cyst, thyroid Depression Dysuria Encounter to establish care Seasonal allergies Strep pharyngitis UTI (urinary tract infection) Surgical History Surgical History History of dilation and curettage 10/17/20 suction d&c 10/30/20 hscope d&c--POC still present No significant past surgical history Family History Family History Other No significant family history Mother Hypertension Hypothyroidism Social History Social History Smoking status: Never smoker Second hand tobacco smoke exposure: No Alcohol intake: current Alcohol use details: once or twice a month Substance use: never Substance use type: does not use Lack of Transportation: No Lack of Food: Never True Current Housing: I Have Housing Concerned About Future Housing: No Difficulty Paying Gas/Electric Bills: No Difficulty Paying for Meds: No Currently Unemployed: No Education: Master's Degree or Higher Difficulty w/ Childcare or Family Care: No Living arrangements: with family Occupation/Education: occupation 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 There is no relevant family history pertinent to the patient complaint. Exam Narrative: Patient nontoxic appearing. Exam consistent with otitis media. Start p.o. antibiotics. Follow with primary care provider. Discharge instructions reviewed with patient, as well as provided in writing per nursing staff. The instructions also include specific and strict return/GO TO THE ER as well as f/u information. All questions have been answered, and the patient deny any further questions with discharge and discharge plan. Some parts of this dictation were generated by voice recognition software and may contain typographical and/or grammatical inaccuracies. Const: General: cooperative, no acute distress, alert and awake Orientation/consciousness: oriented to person, oriented to place and oriented to time HENMT: Head: normal to inspection Ears: TM abnormal bulging on the left, erythematous on the left, with fluid behind the TM on the right and with loss of landmarks on the left Mouth: Yes moist mucous membranes Throat: posterior oropharynx abnormal erythema Resp: Effort & Inspection: normal respiratory effort and able to speak in complete sentences Auscultation: clear to auscultation bilaterally, no crackles, no rales, no rhonchi and no wheezes Cardio: Palpation: normal PMI Rate: regular rate Rhythm: regular rhythm Heart sounds: S1 normal heart sound present and S2 normal heart sound present Neuro: General: oriented to person, oriented to place and oriented to time Cranial nerves: Yes CN's II-XII intact bilaterally Psych: Appearance: grossly normal Thought process: Normal thought process present Insight: Good insight present (Psych) Judgement: Good judgement present (Psych) Course Course Level of Care: Express Care Visit Vital Signs Vital signs: Vital Signs Temperature 97.9 F 04/26/24 15:48 Pulse Rate 96 04/26/24 15:48 Respiratory Rate 18 04/26/24 15:48 Blood Pressure 123/75 04/26/24 15:48 Pulse Oximetry 100 04/26/24 15:48 Oxygen Delivery Room Air 04/26/24 15:48 Temperature 97.9 F 04/26/24 15:48 Pulse Rate 96 04/26/24 15:48 Respiratory Rate 18 04/26/24 15:48 Blood Pressure 123/75 04/26/24 15:48 Pulse Oximetry 100 04/26/24 15:48 Oxygen Delivery Room Air 04/26/24 15:48 Reviewed Discharge Plan Discharge Clinical Impression: Otitis media Qualifiers: Otitis media type: suppurative Chronicity: acute Laterality: left Recurrence: not specified as recurrent Spontaneous tympanic membrane rupture: without spontaneous rupture Qualified Code(s): H66.002 - Acute suppurative otitis media without spontaneous rupture of ear drum, left ear Patient Disposition: Home, Self-Care Condition: Stable Instructions: Antibiotic Form Additional Instructions: Take medications as prescribed. Follow-up with primary care provider. Emergency department for new or worsening symptoms Patient Language: Wolof Prescriptions: New amoxicillin 875 mg tablet 875 mg PO Q12H Qty: 20 0RF No Action trazodone 50 mg tablet 50 mg PO QHS PRN (Reason: Insomnia) dextroamphetamine-amphetamine [Adderall XR] 20 mg capsule,extended release 24hr 40 mg PO DAILY Patient Comments: per psychiatrist fluticasone propionate [Flonase Allergy Relief] 50 mcg/actuation spray,suspension 1 spray intranasal BID Qty: 16 11RF Rx Instructions: administer into each nostril Follow-up/Referrals: Breana North NP [Primary Care Provider] - 2 Weeks Stand Alone Forms: Work/School Release IP Time of Disposition: 16:11
== END 2024-04-26 16:12 | disposition home or self-care (01) ==
PROVIDERS: Emergency Provider Nurse Practitioner Family; PCP Nurse Practitioner Family
DX: H66.002 Acute suppurative otitis media without spontaneous rupture of ear drum, left ear (principal); F90.9 Attention-deficit hyperactivity disorder, unspecified type; F41.8 Other specified anxiety disorders
CPT/HCPCS: 99213; G0463

== ENCOUNTER 2024-07-30 18:56 | Emergency (ER) | payer BC, SELFPAY ==
--- OUTSIDE RECORDS SUMMARY | 2024-07-30 18:59 | XMS_ITS | Referral Summary ---
Author Organization [facility] Address [facility] [place] [address] Care Team Providers Care Roof Designer Name Role Phone Krys Melendrez MD Unavailable [phone] Katlin Denise MD Primary Care Provider Allergies No known active allergies Medications cyclobenzaprine (FLEXERIL) 10 mg tablet Take 1 tablet (10 mg total) by mouth 3 (three) times a day as needed for muscle spasms 15 tablet 11/22/2021 Active ciprofloxacin (CIPRO) 250 mg tablet Take 1 tablet (250 mg total) by mouth every 12 (twelve) hours 6 tablet 11/22/2021 Active Active Problems Problem Noted Date Diagnosed Date 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/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 ADD (attention deficit disorder) 06/05/2021 Anxiety 06/05/2021 Depression 06/05/2021 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 Perineal pain 01/30/2014 Urinary tract infection 11/15/2013 Abdominal pain 11/15/2013 Chronic cystitis 11/15/2013 Incomplete emptying of bladder 11/15/2013 Social History Tobacco Use Types Packs/Day Years Used Date Smoking Tobacco: Never Assessed Comments Unknown Sex and Gender Information Value Date Recorded Sex Assigned at Not on file Legal Sex Female 6:41 AM SOCK FOLDER Gender Identity Female 04/15/2021 9:33 AM SOCK FOLDER Sexual Orientation Straight 04/15/2021 9: 33 AM SOCK FOLDER Last Filed Vital Signs Vital Sign Reading Time Taken Comments Blood Pressure 96/57 11/22/2021 9:23 PM CDT Pulse 110 11/22/2021 9:23 PM CDT Temperature 37.7 C (99.8 F) 11/22/2021 7:16 PM CDT Respiratory Rate 16 11/22/2021 9:23 PM CDT Oxygen Saturation 98% 11/22/2021 9:23 PM CDT Inhaled Oxygen Concentration - - Weight 54.1 kg (119 lb 4.3 oz) 11/22/2021 7:16 P M CDT Height 152.4 cm (5') 11/22/2021 7:16 PM CDT Body Mass Index 23.29 11/22/2021 7:16 PM CDT Plan of Treatment Not on file Insurance [employer] [place] [facility] Address: [address] [place] [address] [place] Care Teams Roof Designer Relationship Specialty Start Date End Date Katlin Denise MD [address] [place] [address] PCP - General Family Medicine 01/22/21 Krys Melendrez MD Obstetrics and Gynecology 10/30/20
--- OUTSIDE RECORDS SUMMARY | 2024-07-30 18:59 | XMS_ITS | Clinical Summary ---
Author Organization [facility] Address [facility] [place] [address] Care Team Providers Care Tractor Trailer Technician Name Role Phone Krys Melendrez MD Unavailable [phone] Katlin Denise MD Primary Care Provider Allergies [...] cystitis 11/15/2013 Incomplete emptying of bladder 11/15/2013 Family History Medical History Relation Name Comments No Known Problems Brother Substance Abuse Father Epilepsy Father's Brother Hypertension Maternal Grandfather Alcohol abuse Maternal Grandmother Bipolar disorder Maternal Grandmother Hypertension Maternal Grandmother Hypothyroidism Maternal Grandmother Gallbladder disease Mother Hypertension Mother Hypothyroidism Mother Car Accident Mother's Brother 1 Substance Abuse Mother's Brother 1 Hypertension Mother's Brother 2 Car Accident Mother's Sister Endometriosis Mother's Sister Substance Abuse Mother's Sister Spina bifida Nephew Miscarriages / Stillbirths Other Pat half-aunt SAB x6 and three living children Diabetes Paternal Grandfather Diabetes type II Paternal Grandmother No Known Problems Paternal Half-Sister 1 Epilepsy Paternal Half-Sister 2 Relation Name Status Comments Brother Alive Father Alive Father's Brother Alive Maternal Grandfather Alive Maternal Grandmother Alive Mother Alive Mother's Brother 1 Mother's Brother 2 Alive Mother's Sister Nephew Alive Other Pat half-aunt Alive Paternal Grandfather Paternal Grandmother Alive Paternal Half-Sister 1 Alive Paternal Half-Sister 2 Alive Social History Tobacco Use Types Packs/Day Years Used Date Smoking Tobacco: Never Assessed Comments Unknown Sex and Gender Information Value Date Recorded Sex Assigned at Not on file Legal Sex Female 6:41 AM MUSIC JOURNALIST Gender Identity Female 04/15/2021 9:33 AM MUSIC JOURNALIST Sexual Orientation Straight 04/15/2021 9: 33 AM MUSIC JOURNALIST Obstetrics History Para Term AB IAB SAB Ectopic Multiple Livin g Live Births 3 0 0 0 3 0 Date Outcome GA Total Labor Labor/2nd/3rd Weight Sex Type Anes PTL Paige A1 A5 Name Clin AB AB AB Comments 05/2018 -> US at around 5.5 w ks which showed sac actively passing. Provider tracked bHCG levels down to 0 06/2020 -> 7 wk US which showed +FHR, but started bleeding three days later with downtrending bHCGs. Provider tracked bHCG levels down to 0. 09/2020 -> US showing an empty sac without embryo at 8w3d. She initially underwent medical management, but needed D&C and subsequent hysteroscopy/D&C for retained products of conception. Last Filed Vital Signs Vital Sign Reading [...] 11/22/2021 7:16 PM CDT Plan of Treatment Health Maintenance Due Date Last Done Comments Cervical Cancer Screening 1995 Depression Screening 1995 Hepatitis C Screening 1995 DTaP/Tdap/Td Vaccine (1 - Tdap) 12/30/2006 Varicella Vaccines (1 of 2 - 13+ 2-dose series) 12/30/2008 Hepatitis B Screening 12/30/2013 Regular Well Visit/Exam 18-64 12/30/2013 Covid-19 Vaccine (3 - 2023-2 5 season) 2024 11/05/2020, 10/08/2020 Influenza Vaccine (#1) 2024 HPV Vaccines Aged Out No longer eligi ble based on patient's age to complete this topic Pneumococcal vaccine <65 Aged Out No longer eligible based on patient's age to complete this topic Insurance [facility] [place] [id number] [facility] [place] BLUE [employer] [place] [facility] BLUE ACCESS [place] [email or web address] [place] Care Teams Tractor Trailer Technician Relationship Specialty Start Date End Date Katlin Denise MD [address] [place] [address] PCP - General Family Medicine 01/22/21 Krys Melendrez MD Obstetrics and Gynecology 10/30/20
[2024-07-30 19:06] VITALS: BP 124/75; PULSE 87; RESP 16; TEMP 36.1; O2SAT 100
--- OUTSIDE RECORDS SUMMARY | 2024-07-30 19:23 | XMS_ITS | Referral Summary ---
Author Organization [facility] Address [facility] [place] [address] Care Team Providers Care Metallurgical Engineering Technician Name Role Phone Krys Melendrez MD Unavailable [phone] Katlin Denise MD Primary Care Provider Allergies [...] on file Legal Sex Female 6:41 AM PLASTICS FACTORY WORKER Gender Identity Female 04/15/2021 9:33 AM PLASTICS FACTORY WORKER Sexual Orientation Straight 04/15/2021 9: 33 AM PLASTICS FACTORY WORKER Last Filed Vital Signs Vital Sign Reading [...] on file Insurance [place] [facility] BLUE [place] Care Teams Metallurgical Engineering Technician Relationship Specialty Start Date End Date Katlin Denise MD [address] [place] [address] PCP - General Family Medicine 01/22/21 Krys Melendrez MD Obstetrics and Gynecology 10/30/20
--- OUTSIDE RECORDS SUMMARY | 2024-07-30 19:23 | XMS_ITS | Clinical Summary ---
Author Organization [facility] Address [facility] [place] [address] Care Team Providers Care Swift Tender Name Role Phone Krys Melendrez MD Unavailable [phone] Katlin Denise MD Primary Care Provider Allergies [...] on file Legal Sex Female 6:41 AM SNUFF BLENDER Gender Identity Female 04/15/2021 9:33 AM SNUFF BLENDER Sexual Orientation Straight 04/15/2021 9: 33 AM SNUFF BLENDER Obstetrics History Para Term AB IAB SAB [...] patient's age to complete this topic Insurance [facility] [place] [id number] [facility] BLUE [email or web address] [place] [facility] BLUE ACCESS [place] [employer] Care Teams Swift Tender Relationship Specialty Start Date End Date Katlin Denise MD [address] [place] [address] PCP - General Family Medicine 01/22/21 Krys Melendrez MD Obstetrics and Gynecology 10/30/20
--- OUTSIDE RECORDS SUMMARY | 2024-07-30 19:23 | XMS_ITS | Clinical Summary ---
Author Organization [facility] Address [address] [place] [address] Care Team Providers Care Production Cook Name Role Phone Katlin Denise MD Primary Care Provider Allergies No known active allergies Medications vitamin, low iron, 27-0.8 MG tablet Take 1 tablet by mouth daily. Active Active Problems No known active problems Social History Tobacco Use Types Packs/Day Years Used Date Smoking Tobacco: Never Smokeless Tobacco: Never Comments No Sex and Gender Information Value Date Recorded Sex Assigned at Not on file Legal Sex Female 5:49 PM CDT Gender Identity Not on file Sexual Orientation Not on file Last Filed Vital Signs Vital Sign Reading Time Taken Comments Blood Pressure 129/52 06/29/2020 10:16 PM FINANCIAL QUANTITATIVE ANALYST Pulse 73 06/29/2020 9:13 PM FINANCIAL QUANTITATIVE ANALYST Temperature 37.1 C (98.7 F) 06/29/2020 9:13 PM FINANCIAL QUANTITATIVE ANALYST Respiratory Rate 16 06/29/2020 9:13 PM FINANCIAL QUANTITATIVE ANALYST Oxygen Saturation 100% 06/29/2020 9:13 PM FINANCIAL QUANTITATIVE ANALYST Inhaled Oxygen Concentration - - Weight 59 kg (130 lb) 06/29/2020 9:13 PM FINANCIAL QUANTITATIVE ANALYST Height 152.4 cm (5') 06/29/2020 9:13 PM FINANCIAL QUANTITATIVE ANALYST Body Mass Index 25.39 06/29/2020 9:13 PM FINANCIAL QUANTITATIVE ANALYST Plan of Treatment Health Maintenance Due Date Last Done Comments Cervical Cancer Screening Pa autumn Smear (Age 21 to 29) Every 3 Years 1995 Cervical Cancer Screening 1995 Annual Physical 12/30/1998 Hepatitis C 12/30/2013 DTaP, Tdap and Td Vaccines ( 3 - Tdap) 01/02/2020 01/01/2010, 12/14/2000 COVID-19 Vaccine (2023-2 5 season) 2024 Influenza Adult (#1) 2024 06/07/2009 Hepatitis B Vaccines Completed 07/14/1996, 03/08/1996, 01/02/1996 HPV Vaccines Completed 02/04/2012, 01/01/2010 Meningococcal Vaccine Aged Out 02/04/2012 No benny suzi eligible based on patient's age to complete this topic Meningococcal B Vaccine Aged Out No l onger eligible based on patient's age to complete this topic Pneumococcal Vaccine: Pediatrics (0 to 5 Years) and At-Risk Patients (6 to 64 Years) Aged Out No longer eligible b ased on patient's age to complete this topic RSV Immunizations Under 20 Months Aged Out No longer eligible b ased on patient's age to complete this topic Insurance [facility] Care Teams Production Cook Relationship Specialty Start Date End Date Ktalin Denise MD [address] [facility] [place] [address] PCP - General FAMILY PRACTICE 06/29/20
[2024-07-30] MEDS: LIDOCAINE 5% PATCH 1 PATCH TRANSDERM (19:24)
[2024-07-30] MEDS: KETOROLAC 30 MG/ML VIAL (*BKC) 15 MG IM (19:25)
--- NOTE | 2024-07-30 19:25 | ED_ITS ---
HPI - Neck Pain/Injury General Chief Complaint: Neck Pain/Injury Stated Complaint: Neck pain Time Seen by Provider: 07/30/24 19:08 History of Present Illness HPI Narrative: Patient presenting here with left-sided neck pain that started when she was reaching up from the couch to grab something, pain worse with turning left or moving her head to the left. No focal numbness or weakness. Has not taken any pain medicine today yet Related Data Home Medications ?Medication ?Instructions ?Recorded ?Confirmed ?Last Taken ?Type trazodone 50 mg tablet 50 mg PO QHS PRN Insomnia 08/14/21 04/26/24 Unknown History dextroamphetamine-amphetamine ER 40 mg PO DAILY 10/05/22 04/26/24 Unknown History 20 mg 24hr capsule,extend release (Adderall XR) Allergies Allergy/AdvReac Type Severity Reaction Status Date / Time No Known Allergies Allergy Verified 07/30/24 18:57 Review of Systems Review of Systems: All systems reviewed & are unremarkable except as noted in HPI and below PMFSH Past Medical History Medical History (Updated 07/30/24 @ 19:15 by Karuna Petty MD) Cyst, thyroid Abnormal serum thyroxine (T4) level Seasonal allergies Encounter to establish care Dysuria UTI (urinary tract infection) Strep pharyngitis Depression ADHD (attention deficit hyperactivity disorder) Anxiety Surgical History Surgical History History of dilation and curettage 10/17/20 suction d&c 10/30/20 hscope d&c--POC still present No significant past surgical history Family History Family History Other No significant family history Mother Hypertension Hypothyroidism Social History Social History Smoking status: Never smoker Second hand tobacco smoke exposure: No Alcohol intake: current Alcohol use details: once or twice a month Substance use: never Substance use type: does not use Lack of Transportation: No Lack of Food: Never True Current Housing: I Have Housing Concerned About Future Housing: No Difficulty Paying Gas/Electric Bills: No Difficulty Paying for Meds: No Currently Unemployed: No Education: Master's Degree or Higher Difficulty w/ Childcare or Family Care: No Living arrangements: with family Occupation/Education: occupation 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 EYES: EOMI, conjunctiva normal ENT: Hearing grossly intact; normal voice and speech. Some tenderness to the left SCM, with recreation of the pain with adduction left neck. No midline tenderness. LUNGS: Nonlabored breathing. HEART: [Regular rate and rhythm] ABD: [Soft], [nontender to palpation] EXT: Normal range of motion SKIN: [No rashes or lesions.] NEURO: [Alert and oriented x 3. No gross focal sensory or strength deficits.] PSYCH: Normal affect Course Vital Signs Vital signs: Vital Signs Temperature 97 F L 07/30/24 19:06 Pulse Rate 87 07/30/24 19:06 Respiratory Rate 16 07/30/24 19:06 Blood Pressure 124/75 07/30/24 19:06 Pulse Oximetry 100 07/30/24 19:06 Temperature 97 F L 07/30/24 19:06 Pulse Rate 87 07/30/24 19:47 Respiratory Rate 16 07/30/24 19:47 Blood Pressure 124/75 07/30/24 19:47 Pulse Oximetry 100 07/30/24 19:47 MDM - Neck Pain/Injury MDM Narrative Medical decision making narrative: Patient presents with signs and symptoms consistent with left cervical strain without any midline tenderness, or focal neurologic/vascular deficits. Pain medication provided, and scripts for muscle relaxant. To follow-up with PCP with return precautions, patient agreeable to plan. Her mother will be driving her home. Discharge Plan Discharge Clinical Impression: Strain of neck muscle Patient Disposition: Home, Self-Care Condition: Stable Instructions: Cervical Strain (ED) Additional Instructions: Please take the meds as prescribed and follow up with your doctor; come back for any worsening symptoms. Patient Language: Luxembourgish Prescriptions: New methocarbamol 750 mg tablet 750 mg PO TID PRN (Reason: muscle spasm) Qty: 30 0RF lidocaine 5 % adhesive patch,medicated 1 patch topical DAILY Qty: 15 0RF Rx Instructions: leave on most painful area for up to 12 hrs ibuprofen 600 mg tablet 600 mg PO TID PRN (Reason: fever or pain) Qty: 30 0RF No Action amoxicillin 875 mg tablet 875 mg PO Q12H Qty: 20 0RF trazodone 50 mg tablet 50 mg PO QHS PRN (Reason: Insomnia) dextroamphetamine-amphetamine [Adderall XR] 20 mg capsule,extended release 24hr 40 mg PO DAILY Patient Comments: per psychiatrist fluticasone propionate [Flonase Allergy Relief] 50 mcg/actuation spray,suspension 1 spray intranasal BID Qty: 16 11RF Rx Instructions: administer into each nostril Follow-up/Referrals: Breana North NP [Primary Care Provider] - 2 Days
[2024-07-30] MEDS: diazePAM INJ (*CRX) 10 MG/2 ML SYRINGE 5 MG IM (19:26)
[2024-07-30 19:47] VITALS: BP 124/75; PULSE 87; RESP 16; O2SAT 100
== END 2024-07-30 19:48 | disposition home or self-care (01) ==
PROVIDERS: Emergency Provider Emergency Medicine; PCP Nurse Practitioner Family
DX: S16.1XXA Strain of muscle, fascia and tendon at neck level, initial encounter (principal); F90.9 Attention-deficit hyperactivity disorder, unspecified type; F41.9 Anxiety disorder, unspecified; F32.A Depression, unspecified; Z87.440 Personal history of urinary (tract) infections; Z79.899 Other long term (current) drug therapy; X50.9XXA Other and unspecified overexertion or strenuous movements or postures, initial encounter
CPT/HCPCS: 96372; 99284; A9270; J1885; J3360

== ENCOUNTER 2025-02-13 14:20 | Outpatient (CLI) | payer BC, SELFPAY ==
--- OUTSIDE RECORDS SUMMARY | 2024-04-22 04:00 | XMS_ITS ---
Author Organization [facility] Address [address] [place] [address] Care Team Providers Care Desk Clerk Name Role Phone Migration, Provider Unavailable Unavailable REASON FOR VISIT EMR-Norris Encounters Encounter Location Date Provider Diagnosis [facility] [address] [place] [address] 04/22/2024 Provider Migration Plan Of Treatment No Information Progress Notes * Dona HARTMANNB: 6 (29 yo F)Acc No.[id number]:04/22/2024 Patient: Cheng Kiley GR :1995 A ge:28 Y S ex:Female Address:[address] [place] [address], [address] Subjective: * Chief Complaints: * E MR-Norris * * Date:
--- OUTSIDE RECORDS SUMMARY | 2024-04-23 04:00 | XMS_ITS ---
Author Organization [facility] Address [address] [place] [address] Care Team Providers Care Rotary Drill Rig Operator Name Role Phone Migration, Provider Unavailable Unavailable Allergies No Known Allergies REASON FOR VISIT EMR-Norris Medications Medication SIG (Take, Route, Frequency, Duration) Notes Start Date End Date Status traMADol HCl 50 MG Tablet 1 Oral Q6H; Duration: 0 ,PRN Reason:for pain 10/04/2020 Active Encounters Encounter Location Date Provider Diagnosis [address] [address] 04/23/2024 Provider Migration Plan Of Treatment No Information Progress Notes * Yohan HARTMANNStephanieB: 6 (29 yo F)Acc No.[id number]:04/23/2024 Patient: Kiley LYNN :1995 A ge:28 Y S ex:Female Address:[address] [place] [address], [address] Subjective: * Chief Complaints: * E MR-Norris * Medications: T akingtraMADol HCl 50 MG Tablet 1 Oral Q6H , Notes to Pharmacist: ,PRN Reason:for painTaking traMADol HCl 50 MG Tablet 1 Oral Q6H , Notes to Pharmacist: ,PRN Reason:for pain * Allergies: N .K.D.A. * * Date:
--- OUTSIDE RECORDS SUMMARY | 2025-02-13 14:31 | XMS_ITS | Clinical Summary ---
Author Organization [facility] Address [facility] [place] [address] Care Team Providers Care Slag Wheeler Name Role Phone Krys Melendrez MD Unavailable [phone] Katlin Denise MD Primary Care Provider Allergies [...] on file Legal Sex Female 6:41 AM [employer] Gender Identity Female 04/15/2021 9:33 AM [facility] [employer] Sexual Orientation Straight 04/15/2021 9: 33 AM [facility] [employer] Obstetrics History Para Term AB IAB SAB [...] Plan of Treatment Not on file Insurance [facility] Member Subscriber Plan / Payer (Ef fective 2011-Present) Name:MILLICENT [place] Relation to Subscriber:Child Name:NISSA HARTMANN Date of :1995 (Home) Address: [address] [place] [id number] Payer ID:[id number] (NACHANTELL) Group ID:[id number] Type: JORGE Address: [facility] [id number] [address] [employer] [facility] [employer] [place] Care Teams Slag Wheeler Relationship Specialty Start Date End Date Katlin Denise MD [address] [place] [address] PCP - General Family Medicine 01/22/21 Krys Melendrez MD Obstetrics and Gynecology 10/30/20
--- OUTSIDE RECORDS SUMMARY | 2025-02-13 14:31 | XMS_ITS | Patient Health Record ---
Author Organization [facility] Address [address] [place] [address] Care Team Providers Care Collection Card Clerk Name Role Phone Migration, Provider Unavailable Unavailable Allergies No Known Allergies Reason For Referral No Information Medications Medication SIG (Take, Route, Frequency, Duration) Notes Start Date End Date Status traMADol HCl 50 MG Tablet 1 Oral Q6H; Duration: 0 ,PRN Reason:for pain 10/04/2020 Active Problems Problem Type SNOMED Code ICD Code Onset Dates Problem Status W/U Status Risk Notes Problem Dermatophytosis (disorder) (65381739) Dermatophytosis of the body (110.5) 017 Problem resolved confirmed Problem Pityriasis versicolor (11905940) Pityriasis versicolor (111.0) 016 Problem resolved confirmed Problem Candidal vulvovaginitis (87059960) Candidiasis of vulva and vagina (112.1) 018 Problem resolved confirmed Problem Major depression, single episode (34950115) Major depressive disorder, single episode, unspecified (296.20) 018 Active confirmed Problem Generalized anxiety disorder (40587133) Generalized anxiety disorder (300.02) 016 Active confirmed Problem Dysthymia (91661507) Dysthymic disorder (300.4) 018 Problem resolved confirmed Problem Redness or discharge of eye (379.93) 019 Active confirmed Problem Acute upper respiratory infection (69176176) Acute upper respiratory infections of other multiple sites (465.8) 018 Active confirmed Problem Constipation (17700757) Constipation (564.0) 016 Active confirmed Problem Slow transit constipation (16991924) Slow transit constipation (564.01) Problem resolved confirmed Problem Acute cystitis (21522959) Acute cystitis (595.0) Active confirmed Problem Urinary tract infectious disease (disorder) (34347892) Urinary tract infection, site not specified (599.0) Problem resolved confirmed Problem Follicular cyst of ovary (1395073) Follicular cyst of ovary (620.0) Problem resolved confirmed Problem Female genital organ symptoms (970298808) Unspecified symptom associated with female genital organs (625.9) Problem resolved confirmed Problem Other symptoms referable to back (724.8) Problem resolved confirmed Problem Alopecia (disorder) (99340384) Unspecified alopecia (704.00) Problem resolved confirmed Problem Other specified disease of hair and hair follicles (704.8) Problem resolved confirmed Problem Fever (396610783) Fever, unspecified (780.60) Active confirmed Problem Malaise and fatigue (437076490) Other malaise and fatigue (780.79) Active confirmed Problem Eruption of skin (813490083) Rash and other nonspecific skin eruption (782.1) Active confirmed Problem Dysuria (05830123) Dysuria (788.1) Problem resolved confirmed Problem Abdominal pain (finding) (80412092) Abdominal pain, unspecified site (789.00) Problem resolved confirmed Problem Generalized abdominal pain (265730294) Abdominal pain, generalized (789.07) Active confirmed Problem Nonvenomous insect bite of multiple sites (847721367) Other, multiple, and unspecified sites, insect bite, nonvenomous, without mention of infection (919.4) Active confirmed Problem Requires influenza virus vaccination (908400992) Need for prophylactic vaccination and inoculation, Influenza (V04.81) Problem resolved confirmed Problem General examination of patient (710970834) Routine general medical examination at health care facility (V70.0) 08/10/2 017 Active confirmed Problem Viral screening (943378958) Special screening examination for other specified viral diseases (V73.89) 018 Problem resolved confirmed Problem Tinea corporis (53914109) Tinea corporis (B35.4) 017 Problem resolved confirmed Problem Pityriasis versicolor (73807612) Pityriasis versicolor (B36.0) 016 Problem resolved confirmed Problem Candidal vulvovaginitis (62107856) Candidiasis of vulva and vagina (B37.3) 018 Problem resolved confirmed Problem Moderate recurrent major depression (03418589) Major depressive disorder, recurrent, moderate (F33.1) 018 Problem resolved confirmed Problem Recurrent major depression (80457230) Major depressive disorder, recurrent, in remission, unspecified (F33.40) 018 Problem resolved confirmed Problem Generalized anxiety disorder (35136511) Generalized anxiety disorder (F41.1) 018 Problem resolved confirmed Problem Anxiety disorder (438354729) Anxiety disorder, unspecified (F41.9) 016 Problem resolved confirmed Problem Acute upper respiratory infection (61796756) Acute upper respiratory infection, unspecified (J06.9) 018 Problem resolved confirmed Problem Constipation (85031919) Constipation, unspecified (K59.00) 016 Active confirmed Problem Alopecia (98422223) Nonscarring hair loss, unspecified (L65.9) 016 Problem resolved confirmed Problem Folliculitis (27736867) Follicular disorder, unspecified (L73.9) 019 Problem resolved confirmed Problem Disorder of vertebral column (753184134) Other specified dorsopathies, site unspecified (M53.80) 021 Active confirmed bilateral flank pain Problem Low back pain (848872452) Low back pain (M54.5) 018 Problem resolved confirmed Problem Renal colic (5215070) Unspecified renal colic (N23) 018 Problem resolved confirmed Problem Acute cystitis (40744832) Acute cystitis without hematuria (N30.00) 018 Problem resolved confirmed Problem Urinary tract infectious disease (disorder) (57884584) Urinary tract infection, site not specified (N39.0) Active confirmed Problem Ovarian cyst (31733981) Other ovarian cysts (N83.29) Problem resolved confirmed Problem Menopause (350424271) Menopausal and female climacteric states (N95.1) Problem resolved confirmed Problem Pelvic and perineal pain (058047691) Pelvic and perineal pain (R10.2) Problem resolved confirmed Problem Abdominal pain (83970846) Unspecified abdominal pain (R10.9) Problem resolved confirmed Problem Dysuria (67244872) Dysuria (R30.0) Problem resolved confirmed Problem Fever (078579489) Fever, unspecified (R50.9) Active confirmed Problem Fatigue (21403042) Other fatigue (R53.83) Active confirmed Problem Nonvenomous insect bite of trunk without infection (60453176) Insect bite (nonvenomous) of right front wall of thorax, initial encounter (S20.361A) Active confirmed Problem Nonvenomous insect bite of forearm without infection (5484722) Insect bite (nonvenomous) of left forearm, initial encounter (S50.862A) Active confirmed Problem Nonvenomous insect bite of thigh without infection (1176603) Insect bite (nonvenomous), right thigh, initial encounter (S70.361A) Active confirmed Problem Multiple injuries (006658306) Unspecified multiple injuries (T07) Active confirmed Problem Bite of nonvenomous arthropod (832224811) Bitten or stung by nonvenomous insect and other nonvenomous arthropods, initial encounter (W57.XXXA) Active confirmed Problem Adult health examination (081888829) Encounter for general adult medical examination without abnormal findings (Z00.00) Active confirmed Problem Child health medical examination (646708574) Encounter for routine child health examination with abnormal findings (Z00.121) 08/10/2 017 Problem resolved confirmed Problem Child health medical examination (748144692) Encounter for routine child health examination without abnormal findings (Z00.129) 017 Problem resolved confirmed Problem Gynecological examination normal (242612041102012) Encounter for gynecological examination (general) (routine) without abnormal findings (Z01.419) 017 Problem resolved confirmed Problem Clinical immunological test (350721828) Encounter for antibody response examination (Z01.84) 018 Problem resolved confirmed Problem Tuberculosis screening (323501078) Encounter for screening for respiratory tuberculosis (Z11.1) 021 Active confirmed Problem Vaccination given (674401637) Encounter for immunization (Z23) 018 Problem resolved confirmed Encounters Encounter Location Date Provider Diagnosis [facility] [address] [place] [address] 04/22/2024 Provider Migration [facility] [address] [place] [address] 04/23/2024 Provider Migration Plan Of Treatment No Information Insurance Providers Payer Name Payer Address Payer Phone Subscriber Number Group Number Insured Name Patient Relationship to Insured Coverage Start Date Coverage End Date BCBSIL [address] [place] [address] [id number] Kiley Hartmann Self - patient is the insured
[2025-02-13 15:22] LABS: Beta HCG Quantitative 176.75 mIU/ML
== END 2025-02-13 14:21 | disposition home or self-care (01) ==
LOC: ANHLAB 14:21
PROVIDERS: PCP Nurse Practitioner Family; Visit Provider Obstetrics & Gynecology
DX: O02.1 Missed abortion (principal)
CPT/HCPCS: 36415; 84702

== ENCOUNTER 2025-02-16 09:04 | Outpatient (CLI) | payer BC, SELFPAY ==
--- OUTSIDE RECORDS SUMMARY | 2024-04-22 04:00 | XMS_ITS ---
Author Organization [facility] Address [address] [place] [phone] Care Team Providers Care Podiatrist Assistant Name Role Phone Migration, Provider Unavailable Unavailable REASON FOR VISIT EMR-Norris Encounters Encounter Location Date Provider Diagnosis [facility] [address] [place] [address] 04/22/2024 Provider Migration Plan Of Treatment No Information Progress Notes * Dona HARTMANNB: 6 (29 yo F)Acc No.[id number]:04/22/2024 Patient: Cheng Kiley GR :1995 A ge:28 Y S ex:Female Address:[address] [place] [address], [address] Subjective: * Chief Complaints: * E MR-Norris * * Date:
--- OUTSIDE RECORDS SUMMARY | 2024-04-23 04:00 | XMS_ITS ---
Author Organization [facility] Address [address] [place] [address] Care Team Providers Care Bait Maker Name Role Phone Migration, Provider Unavailable Unavailable Allergies No Known Allergies REASON FOR VISIT EMR-Norris Medications Medication SIG (Take, Route, Frequency, Duration) Notes Start Date End Date Status traMADol HCl 50 MG Tablet 1 Oral Q6H; Duration: 0 ,PRN Reason:for pain 10/04/2020 Active Encounters Encounter Location Date Provider Diagnosis [address] [address] 04/23/2024 Provider Migration Plan Of Treatment No Information Progress Notes * Yohan HARTMANNStephanieB: 6 (29 yo F)Acc No.[id number]:04/23/2024 Patient: Kiley LYNN :1995 A ge:28 Y S ex:Female Address:[address] [place] [address], [address] Subjective: * Chief Complaints: * E MR-Norris * Medications: T akingtraMADol HCl 50 MG Tablet 1 Oral Q6H , Notes to Pharmacist: ,PRN Reason:for painTaking traMADol HCl 50 MG Tablet 1 Oral Q6H , Notes to Pharmacist: ,PRN Reason:for pain * Allergies: N .K.D.A. * * Date:
--- OUTSIDE RECORDS SUMMARY | 2025-02-16 09:10 | XMS_ITS | Patient Health Record ---
Author Organization [facility] Address [address] [place] [address] Care Team Providers Care Label Press Operator Name Role Phone Migration, Provider Unavailable Unavailable Allergies No Known Allergies Reason For Referral No Information Medications Medication SIG (Take, Route, Frequency, Duration) Notes Start Date End Date Status traMADol HCl 50 MG Tablet 1 Oral Q6H; Duration: 0 ,PRN Reason:for pain 10/04/2020 Active Problems Problem Type SNOMED Code ICD Code Onset Dates Problem Status W/U Status Risk Notes Problem Dermatophytosis (disorder) (13177100) Dermatophytosis of the body (110.5) 017 Problem resolved confirmed Problem Pityriasis versicolor (70790607) Pityriasis versicolor (111.0) 016 Problem resolved confirmed Problem Candidal vulvovaginitis (08902302) Candidiasis of vulva and vagina (112.1) 018 Problem resolved confirmed Problem Major depression, single episode (55136093) Major depressive disorder, single episode, unspecified (296.20) 018 Active confirmed Problem Generalized anxiety disorder (80805411) Generalized anxiety disorder (300.02) 016 Active confirmed Problem Dysthymia (51079324) Dysthymic disorder (300.4) 018 Problem resolved confirmed Problem Redness or discharge of eye (379.93) 019 Active confirmed Problem Acute upper respiratory infection (86756503) Acute upper respiratory infections of other multiple sites (465.8) 018 Active confirmed Problem Constipation (69481883) Constipation (564.0) 016 Active confirmed Problem Slow transit constipation (53312969) Slow transit constipation (564.01) Problem resolved confirmed Problem Acute cystitis (59962227) Acute cystitis (595.0) Active confirmed Problem Urinary tract infectious disease (disorder) (93510249) Urinary tract infection, site not specified (599.0) Problem resolved confirmed Problem Follicular cyst of ovary (3125247) Follicular cyst of ovary (620.0) Problem resolved confirmed Problem Female genital organ symptoms (366624831) Unspecified symptom associated with female genital organs (625.9) Problem resolved confirmed Problem Other symptoms referable to back (724.8) Problem resolved confirmed Problem Alopecia (disorder) (70107433) Unspecified alopecia (704.00) Problem resolved confirmed Problem Other specified disease of hair and hair follicles (704.8) Problem resolved confirmed Problem Fever (586190528) Fever, unspecified (780.60) Active confirmed Problem Malaise and fatigue (940320510) Other malaise and fatigue (780.79) Active confirmed Problem Eruption of skin (726350938) Rash and other nonspecific skin eruption (782.1) Active confirmed Problem Dysuria (51760460) Dysuria (788.1) Problem resolved confirmed Problem Abdominal pain (finding) (26346485) Abdominal pain, unspecified site (789.00) Problem resolved confirmed Problem Generalized abdominal pain (633285535) Abdominal pain, generalized (789.07) Active confirmed Problem Nonvenomous insect bite of multiple sites (198599649) Other, multiple, and unspecified sites, insect bite, nonvenomous, without mention of infection (919.4) Active confirmed Problem Requires influenza virus vaccination (584553588) Need for prophylactic vaccination and inoculation, Influenza (V04.81) Problem resolved confirmed Problem General examination of patient (165818530) Routine general medical examination at health care facility (V70.0) 08/10/2 017 Active confirmed Problem Viral screening (374451136) Special screening examination for other specified viral diseases (V73.89) 018 Problem resolved confirmed Problem Tinea corporis (42611696) Tinea corporis (B35.4) 017 Problem resolved confirmed Problem Pityriasis versicolor (35125847) Pityriasis versicolor (B36.0) 016 Problem resolved confirmed Problem Candidal vulvovaginitis (19396274) Candidiasis of vulva and vagina (B37.3) 018 Problem resolved confirmed Problem Moderate recurrent major depression (32937882) Major depressive disorder, recurrent, moderate (F33.1) 018 Problem resolved confirmed Problem Recurrent major depression (85939811) Major depressive disorder, recurrent, in remission, unspecified (F33.40) 018 Problem resolved confirmed Problem Generalized anxiety disorder (35154112) Generalized anxiety disorder (F41.1) 018 Problem resolved confirmed Problem Anxiety disorder (655406741) Anxiety disorder, unspecified (F41.9) 016 Problem resolved confirmed Problem Acute upper respiratory infection (50433141) Acute upper respiratory infection, unspecified (J06.9) 018 Problem resolved confirmed Problem Constipation (02194487) Constipation, unspecified (K59.00) 016 Active confirmed Problem Alopecia (26768523) Nonscarring hair loss, unspecified (L65.9) 016 Problem resolved confirmed Problem Folliculitis (80014811) Follicular disorder, unspecified (L73.9) 019 Problem resolved confirmed Problem Disorder of vertebral column (435363720) Other specified dorsopathies, site unspecified (M53.80) 021 Active confirmed bilateral flank pain Problem Low back pain (790306575) Low back pain (M54.5) 018 Problem resolved confirmed Problem Renal colic (7570623) Unspecified renal colic (N23) 018 Problem resolved confirmed Problem Acute cystitis (63362144) Acute cystitis without hematuria (N30.00) 018 Problem resolved confirmed Problem Urinary tract infectious disease (disorder) (60054238) Urinary tract infection, site not specified (N39.0) Active confirmed Problem Ovarian cyst (10471466) Other ovarian cysts (N83.29) Problem resolved confirmed Problem Menopause (537374326) Menopausal and female climacteric states (N95.1) Problem resolved confirmed Problem Pelvic and perineal pain (980618201) Pelvic and perineal pain (R10.2) Problem resolved confirmed Problem Abdominal pain (82997270) Unspecified abdominal pain (R10.9) Problem resolved confirmed Problem Dysuria (01464851) Dysuria (R30.0) Problem resolved confirmed Problem Fever (617034391) Fever, unspecified (R50.9) Active confirmed Problem Fatigue (85375541) Other fatigue (R53.83) Active confirmed Problem Nonvenomous insect bite of trunk without infection (21371463) Insect bite (nonvenomous) of right front wall of thorax, initial encounter (S20.361A) Active confirmed Problem Nonvenomous insect bite of forearm without infection (9621294) Insect bite (nonvenomous) of left forearm, initial encounter (S50.862A) Active confirmed Problem Nonvenomous insect bite of thigh without infection (0735996) Insect bite (nonvenomous), right thigh, initial encounter (S70.361A) Active confirmed Problem Multiple injuries (433113764) Unspecified multiple injuries (T07) Active confirmed Problem Bite of nonvenomous arthropod (988652970) Bitten or stung by nonvenomous insect and other nonvenomous arthropods, initial encounter (W57.XXXA) Active confirmed Problem Adult health examination (925741913) Encounter for general adult medical examination without abnormal findings (Z00.00) Active confirmed Problem Child health medical examination (002340242) Encounter for routine child health examination with abnormal findings (Z00.121) 08/10/2 017 Problem resolved confirmed Problem Child health medical examination (304091059) Encounter for routine child health examination without abnormal findings (Z00.129) 017 Problem resolved confirmed Problem Gynecological examination normal (442330029005787) Encounter for gynecological examination (general) (routine) without abnormal findings (Z01.419) 017 Problem resolved confirmed Problem Clinical immunological test (148908014) Encounter for antibody response examination (Z01.84) 018 Problem resolved confirmed Problem Tuberculosis screening (927950562) Encounter for screening for respiratory tuberculosis (Z11.1) 021 Active confirmed Problem Vaccination given (788516186) Encounter for immunization (Z23) 018 Problem resolved confirmed Encounters Encounter Location Date Provider Diagnosis [facility] [address] [place] [address] 04/22/2024 Provider Migration [facility] [address] [place] [address] 04/23/2024 Provider Migration Plan Of Treatment No Information Insurance Providers Payer Name Payer Address Payer Phone Subscriber Number Group Number Insured Name Patient Relationship to Insured Coverage Start Date Coverage End Date BCBSIL [address] [place] [address] [id number] Kiley Hartmann Self - patient is the insured
--- OUTSIDE RECORDS SUMMARY | 2025-02-16 09:10 | XMS_ITS | Clinical Summary ---
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 Gender Identity Female 04/15/2021 9:33 AM CORE DRILLER HELPER Sexual Orientation Straight 04/15/2021 9: 33 AM CORE DRILLER HELPER Obstetrics History Para Term AB IAB SAB [...] Plan of Treatment Not on file Insurance [facility] Member Subscriber Plan / Payer (Ef fective 2011-Present) Name:MILLICENT [place] Relation to Subscriber:Child Name:NISSA HARTMANN Date of :1995 (Home) Address: [address] [place] [id number] Payer ID:[id number] (NACHANTELL) Group ID:[id number] Type: JORGE Address: [facility] [id number] [employer] [facility] [employer] [place] Care Teams English As A Second Language Teacher Relationship Specialty Start Date End Date Katlin Denise MD [address] [place] [address] PCP - General Family Medicine 01/22/21 Krys Melendrez MD Obstetrics and Gynecology 10/30/20
--- OUTSIDE RECORDS SUMMARY | 2025-02-16 09:10 | XMS_ITS | Clinical Summary ---
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 COLLECTION OFFICER Pulse 73 06/29/2020 9:13 PM [employer]CIAL LOAN COLLECTION OFFICER Temperature 37.1 C (98.7 F) 06/29/2020 9:13 PM [employer]CIAL LOAN COLLECTION OFFICER Respiratory Rate 16 06/29/2020 9:13 PM [employer]CIAL LOAN COLLECTION OFFICER Oxygen Saturation 100% 06/29/2020 9:13 PM COMMERCIAL LOAN COLLECTION OFFICER Inhaled Oxygen Concentration - - Weight 59 kg (130 lb) 06/29/2020 9:13 PM [employer]CIAL LOAN [employer]LECTION OFFICER Height 152.4 cm (5') 06/29/2020 9:13 PM [employer] LOAN COLLECTION OFFICER Body Mass Index 25.39 06/29/2020 9:13 PM [employer]ERCIAL LOAN COLLECTION OFFICER Plan of Treatment Health Maintenance Due Date Last Done Comments Cervical Cancer Screening Pa p Smear (Age 21 to 29) Every 3 Years 1995 Cervical Cancer Screening 1995 Annual Physical 12/30/1998 Hepatitis C 12/30/2013 DTaP, Tdap and Td Vaccines ( 3 - Tdap) 01/02/2020 01/01/2010, 12/14/2000 COVID-19 Vaccine (2023-2 5 season) 2025 Hepatitis B Vaccines Completed 07/14/1996, 03/08/1996, 01/02/1996 HPV Vaccines Completed 02/04/2012, 01/01/2010 Meningococcal Vaccine Aged Out 02/04/2012 No benny suzi eligible based on patient's age to complete this topic Meningococcal B Vaccine Aged Out No l onger eligible based on patient's age to complete this topic Pneumococcal Vaccine: Pediatrics (0 to 5 Years) and At-Risk Patients (6 to 49 Years) Aged Out No longer eligible b ased on patient's age to complete this topic RSV Immunizations Under 20 Months Aged Out No longer eligible b ased on patient's age to complete this topic Insurance Care Teams Ripsawyer Relationship Specialty Start Date End Date Katlin Denise MD [address] [place] [address] PCP - General FAMILY PRACTICE 06/29/20
[2025-02-16 10:26] LABS: Beta HCG Quantitative 60.82 mIU/ML
== END 2025-02-16 09:05 | disposition home or self-care (01) ==
LOC: ANHLAB 09:05
PROVIDERS: PCP Nurse Practitioner Family; Visit Provider Obstetrics & Gynecology
DX: O02.1 Missed abortion (principal); Z3A.00 Weeks of gestation of pregnancy not specified
CPT/HCPCS: 36415; 84702